=== PATIENT | female | born 2000 | race Caucasian/White ===

== ENCOUNTER 2023-05-12 09:53 | Emergency (ER) | payer SELFPAY ==
[2023-05-12] MEDS ORDERED: Ibuprofen 800 MG TAB ONE (10:25)
== END 2023-05-12 10:36 | disposition home or self-care (01) ==
LOC: MADERS 09:53
DX: J02.9 Acute pharyngitis, unspecified (principal); F17.290 Nicotine dependence, other tobacco product, uncomplicated
CPT/HCPCS: 87081; 87430; 99283

== ENCOUNTER 2023-07-10 03:48 | Emergency (ER) | payer SELFPAY ==
[2023-07-10 05:09] LABS: ALT (SGPT) 18 U/L (8-55); AST (SGOT) 12 U/L (5-34); Alkaline Phosphatase 104 U/L (40-110); Anion Gap 15 mmol/L (10-20); BUN (Urea Nitrogen) 13 mg/dL (7.0-18.7); Bilirubin, Total 0.4 mg/dL (0.2-1.2); Calc. Creatinine Clearance 0 mL/min (70-130); Calcium 9.2 mg/dL (7.8-10.44); Carbon Dioxide 25 mmol/L (22-29); Chloride 103 mmol/L (98-107); Estimated GFR 103; Globulin 3.4 g/dL (2.4-3.5); Glucose 113 mg/dL (70-105); Magnesium 1.8 mg/dL (1.6-2.6); Potassium 3.9 mmol/L (3.5-5.1); Protein, Total 7.4 g/dL (6.0-8.3); Sodium 139 mmol/L (136-145)
[2023-07-10 05:10] LABS: Troponin I 0.036 ng/mL (< 0.028)
[2023-07-10] MEDS ORDERED: Aspirin 325 MG TAB ONE (05:17)
[2023-07-10 05:29] LABS: Lipase 17 U/L (8-78)
[2023-07-10 07:10] LABS: Troponin I 0.013 ng/mL (< 0.028)
== END 2023-07-10 07:20 | disposition home or self-care (01) ==
LOC: MADERS 03:48
DX: R07.89 Other chest pain (principal); F17.290 Nicotine dependence, other tobacco product, uncomplicated
CPT/HCPCS: 71045; 80053; 83690; 83735; 84484; 85379; 93005; 94760

== ENCOUNTER 2024-04-03 17:58 | Emergency (ER) | payer OTHER ==
[2024-04-03] MEDS ORDERED: Mineral Oil ENEMA ONE (19:36)
== END 2024-04-03 20:49 | disposition home or self-care (01) ==
LOC: MADERS 17:58
DX: O99.612 Diseases of the digestive system complicating pregnancy, second trimester (principal); K59.00 Constipation, unspecified; Z3A.24 24 weeks gestation of pregnancy
CPT/HCPCS: 99283

== ENCOUNTER 2024-07-16 19:46 | Emergency (ER) | payer MEDICAID, OTHER ==
[2024-07-16 20:55] LABS: Bilirubin Negative (Negative); Blood, Urine Large (Negative); Clarity Cloudy (Clear); Glucose, Urine (Dipstick) Negative (Negative); Ketone, Urine Negative (Negative); Leukocyte Small (Negative); Nitrite Negative (Negative); Protein, Urine (Dipstick) 30 mg/dL (Neg-Trace); Urobilinogen 0.2 mg/dL (Less than 2); pH, Urine 6.5 (5.0-9.0)
[2024-07-16 20:57] LABS: Bacteria/HPF Rare-Few HPF (None Seen); CAUTI Indications for Culture Pelvic or flank pain; RBC/HPF 21-50 HPF (0-3); WBC/HPF 21-50 HPF (0-3)
[2024-07-16 20:58] LABS: Urine Culture Reflex Yes Yes
[2024-07-16] MEDS ORDERED: Cephalexin 250 MG CAP ONE (21:37)
== END 2024-07-16 21:47 | disposition home or self-care (01) ==
LOC: MADERS 19:46
DX: O86.20 Urinary tract infection following delivery, unspecified (principal); N39.0 Urinary tract infection, site not specified
CPT/HCPCS: 81001; 87086; 99283